=== PATIENT | female | born 1970 | race Caucasian/White ===

== ENCOUNTER → 2016-09-16 | Outpatient (CLI) | payer BC ==
[~2016-09-16] MED LIST: ACHYD1T PO; BTH25T1 PO; CALC600T; ESTR1TAB24 PO; MULT-608; [UNRECOGNIZED DRUG - CODE]
--- OUTSIDE RECORDS SUMMARY | 2016-09-16 14:25 | XMS REPORT | Continuity of Care Document ---
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 If you do not see the information that you expected, contact Release of Information in the Health Information Management department at [phone] for further assistance in locating additional records.[facility] Active Allergies and Adverse Reactions No Known Allergies Current Medications Prescription Sig. Disp. Refills Start End Date Status Date estrogens, conjugated Take 0.625 mg by mouth Active (PREMARIN) 0.625 mg Daily. tablet MULTI-VITAMIN PO Take 1 Tab by mouth Active Daily. CALCIUM 500 PO Active diphenhydrAMINE Take 25 mg by mouth As Active (BENADRYL) 25 mg capsule Needed Active Problems Not on file Social History Tobacco Use Types Packs/Day Years Used Date Never Smoker Alcohol Use Drinks/Week oz/Week Comments No Last Filed Vital Signs Vital Sign Reading Time Taken Blood Pressure 90/57 12/31/2007 12:45 PM CDT Pulse 54 12/31/2007 12:45 PM CDT Temperature 36.8 C (98.2 F) 12/31/2007 9:00 AM CDT Respiratory Rate - - Height 1.6 m (5' 3") 12/31/2007 9:00 AM CDT Weight 48.081 kg (106 lb) 12/31/2007 9:00 AM CDT Body Mass Index 18.78 12/31/2007 9:00 AM CDT Oxygen Saturation 100% 12/31/2007 12:45 PM CDT Plan of Care Health Maintenance Due Date Last Done Comments Physical (Comprehensive) 1979 Exam Pertussis Vaccine 1983 Tetanus Vaccine 1989 Cervical Cancer Screening 1993 Influenza Vaccine 04/11/2016 Results from Last 3 Months Not on file
--- NOTE | 2016-09-16 15:13 | Diagnostic Imaging Report ---
Three views of the right knee. INDICATION: Knee pain. FINDINGS: There is no fracture, dislocation or radiopaque foreign body. No suprapatellar effusion seen. IMPRESSION: Unremarkable exam. Dictated by: Dictated on workstation # [id number]
== END ==
LOC: RAD 14:21
PROVIDERS: ATTEND Nurse Practitioner Family
DX: M25.561 Pain in right knee (principal)
CPT/HCPCS: 73562

== ENCOUNTER → 2016-09-25 | Outpatient (CLI) | payer BC ==
--- OUTSIDE RECORDS SUMMARY | 2016-09-25 09:15 | XMS REPORT | Continuity of Care Document ---
Author Author [facility] Organization [facility] Address Unknown Phone Unavailable Care Team Providers Care Sat Tutor Name Role Phone Antonio Vasquez PCP [phone] Source Comments Some departments are not documenting in the electronic medical record. If you do not see the information that you expected, contact Release of Information in the Health Information Management department at [phone] for further assistance in locating additional records.[facility] Active Allergies and Adverse Reactions [...]
--- NOTE | 2016-09-25 12:14 | Diagnostic Imaging Report ---
PROCEDURE: MRI right joint lower extremity without contrast. TECHNIQUE: Multiplanar, multisequence non contrast-enhanced MRI of the right lower extremity was accomplished. INDICATION: Lateral right knee pain. FINDINGS: There is no significant effusion. There is a small popliteal cyst measuring 0.7 x 1.2 x 0.8 cm. The ACL and the PCL are normal. The medial and lateral menisci are intact. The MCL and the lateral collateral ligament complex are intact. The extensor mechanism appears intact. The cartilage in the three compartments appears preserved. The muscles signal and bulk around the knee appear unremarkable. IMPRESSION: There is a tiny Young's cyst. No significant abnormality seen otherwise. Dictated by: Dictated on workstation # [id number]
== END ==
LOC: RAD 09:12
PROVIDERS: ATTEND Nurse Practitioner Family
DX: M25.561 Pain in right knee (principal)
CPT/HCPCS: 73721

== ENCOUNTER 2016-11-13 14:15 | Outpatient (RCR) | payer BC | END 2016-12-17 13:40 | disposition home or self-care (01) | PROVIDERS: ATTEND Orthopaedic Surgery | DX: M76.31 Iliotibial band syndrome, right leg (principal) ==

== ENCOUNTER → 2017-03-21 | Outpatient (CLI) | payer BC ==
--- NOTE | 2017-03-24 19:16 | Diagnostic Imaging Report ---
EXAMINATION: Digital mammogram bilateral screening with tomosynthesis. INDICATION: Screening. COMPARISON: This study was compared to the prior exams of 03/08/2016, 02/22/2015, and 02/02/2014. At this time, there are no current complaints. The current study was also evaluated with a Computer Aided Detection (CAD) system. FINDINGS: The fibroglandular tissue in both breasts is heterogeneously dense. This does limit the sensitivity of this exam. Overall, there does not appear to have been any significant change when compared to the prior study. No primary or secondary sign of malignancy is noted. 3D tomographic images fail to show any sign of malignancy. IMPRESSION: There is no radiographic evidence for malignancy. ACR BI-RADS Category 1: Negative. Result letter will be mailed to the patient. Note: At least 10% of breast cancer is not imaged by mammography. Dictated by: Dictated on workstation # [id number]
== END ==
LOC: RAD 09:41
PROVIDERS: ATTEND Nurse Practitioner Family
DX: Z12.31 Encounter for screening mammogram for malignant neoplasm of breast (principal)
CPT/HCPCS: 77067

== ENCOUNTER → 2018-01-20 | Outpatient (CLI) | payer BC | LOC: CARD 14:11 | PROVIDERS: ATTEND Internal Medicine Cardiovascular Disease | DX: R94.31 Abnormal electrocardiogram [ECG] [EKG] (principal); Z82.49 Family history of ischemic heart disease and other diseases of the circulatory system | CPT/HCPCS: 93017 ==

== ENCOUNTER → 2018-02-10 | Outpatient (CLI) | payer BC | LOC: CARD 12:49 | PROVIDERS: ATTEND Internal Medicine Cardiovascular Disease | DX: I34.0 Nonrheumatic mitral (valve) insufficiency (principal); R94.31 Abnormal electrocardiogram [ECG] [EKG]; Z82.49 Family history of ischemic heart disease and other diseases of the circulatory system | CPT/HCPCS: 93306 ==

== ENCOUNTER 2018-06-17 06:48 | Emergency (ER) | payer OTHER, BC ==
[~2018-06-17] VITALS: Ht 160 cm; Wt 4.1 kg
[2018-06-17] MEDS ORDERED: KETOROLAC 30 MG/ML VIAL IM STA (07:06)
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
[2018-06-17 07:31] VITALS: BP 131/78
== END 2018-06-17 07:31 | disposition home or self-care (01) ==
LOC: EDUNIT# 06:48 → ER 06:49
DX: S29.012A Strain of muscle and tendon of back wall of thorax, initial encounter (principal); Z88.0 Allergy status to penicillin; Z90.710 Acquired absence of both cervix and uterus; V43.53XA Car driver injured in collision with pick-up truck in traffic accident, initial encounter
CPT/HCPCS: 96372; 99284

== ENCOUNTER → 2018-06-24 | Outpatient (CLI) | payer OTHER, BC ==
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
== END ==
LOC: RAD 09:22
PROVIDERS: ATTEND Nurse Practitioner Family
DX: M54.6 Pain in thoracic spine (principal); R07.81 Pleurodynia; V89.2XXA Person injured in unspecified motor-vehicle accident, traffic, initial encounter
CPT/HCPCS: 71110; 72070

== ENCOUNTER 2018-12-24 13:40 | Outpatient (RCR) | payer BC | END 2019-01-19 14:31 | disposition home or self-care (01) | DX: M79.662 Pain in left lower leg (principal) ==

== ENCOUNTER → 2019-02-12 | Outpatient (CLI) | payer BC ==
--- NOTE | 2019-02-13 08:02 | Diagnostic Imaging Report ---
Digital mammogram. Bilateral screening with 3-D tomosynthesis with CAD. The study was compared to prior exams of 03/21/2017, 03/08/2016 and 02/22/2015. At this time there are no current complaints. The current study was also evaluated with a Computer Aided Detection (CAD) system. FINDINGS: The fibroglandular tissue in both breasts is heterogeneously dense. This does limit the sensitivity of this exam. Overall, there does not appear to have been any significant change when compared to the prior study. No primary or secondary sign of malignancy is noted. IMPRESSION: There is no radiographic evidence for malignancy. ACR BI-RADS Category 1: Negative. Result letter will be mailed to the patient. Note: At least 10% of breast cancer is not imaged by mammography. Dictated by: Dictated on workstation # [id number]
== END ==
LOC: RAD 10:34
PROVIDERS: ATTEND Nurse Practitioner Family
DX: Z12.31 Encounter for screening mammogram for malignant neoplasm of breast (principal)
CPT/HCPCS: 77067

== ENCOUNTER 2020-02-21 14:30 | Outpatient (RCR) | payer BC | END 2020-02-21 16:35 | disposition home or self-care (01) | PROVIDERS: ATTEND Orthopaedic Surgery | DX: M16.11 Unilateral primary osteoarthritis, right hip (principal) ==

== ENCOUNTER → 2020-03-06 | Outpatient (CLI) | payer BC ==
--- NOTE | 2020-03-07 16:49 | Diagnostic Imaging Report ---
Digital mammogram, bilateral screening. This study was compared to the prior exams of 02/12/2019, 03/21/17 and 03/08/2016. There are no current complaints. The current study was also evaluated with a Computer Aided Detection (CAD) system. FINDINGS: The fibroglandular tissue in both breasts is heterogeneously dense. This does limit the sensitivity of this exam. Overall, there does not appear to have been any significant change when compared to the prior study. No primary or secondary sign of malignancy is noted. IMPRESSION: There is no radiographic evidence for malignancy. ACR category 1 ACR BI-RADS Category 1: Negative. Result letter will be mailed to the patient. Note: At least 10% of breast cancer is not imaged by mammography. Dictated by: Dictated on workstation # [id number]
== END ==
LOC: RAD 14:19
PROVIDERS: ATTEND Nurse Practitioner Family
DX: Z12.31 Encounter for screening mammogram for malignant neoplasm of breast (principal)
CPT/HCPCS: 77063; 77067

== ENCOUNTER 2020-05-31 20:38 | Emergency (ER) | payer BC ==
[~2020-05-31] VITALS: Ht 160 cm; Wt 45.3 kg
[2020-05-31] MEDS ORDERED: PANTOPRAZOLE 40 MG (PROTONIX) VIAL ONE (20:50)
[2020-05-31 20:53] LABS: BASOPHILS # (AUTO) 0.1 10^3/uL (0.0-0.1); BASOPHILS % (AUTO) 1 % (0-10); EOSINOPHILS # (AUTO) 0.1 10^3/uL (0.0-0.3); EOSINOPHILS % (AUTO) 1 % (0-10); HEMATOCRIT 43 % (35-52); HEMOGLOBIN 14.6 g/dL (11.5-16.0); LYMPHOCYTES # (AUTO) 2.2 10^3/uL (1.0-4.0); LYMPHOCYTES % (AUTO) 34 % (12-44); MEAN CORPUSCULAR HEMOGLOBIN 31 pg (25-34); MEAN CORPUSCULAR HGB CONC 34 g/dL (32-36); MEAN CORPUSCULAR VOLUME 92 fL (80-99); MEAN PLATELET VOLUME 11.1 fL (9.0-12.2); MONOCYTES # (AUTO) 0.7 10^3/uL (0.0-1.0); MONOCYTES % (AUTO) 11 % (0-12); NEUTROPHILS # (AUTO) 3.5 10^3/uL (1.8-7.8); NEUTROPHILS % (AUTO) 53 % (42-75); PLATELET COUNT 202 10^3/uL (130-400); WHITE BLOOD COUNT 6.6 10^3/uL (4.3-11.0)
[2020-05-31] MEDS ORDERED: PANTOPRAZOLE 40 MG (PROTONIX) VIAL IV ONE (21:00)
[2020-05-31 21:06] LABS: BILIRUBIN,URINE NEGATIVE (NEGATIVE); CLARITY,URINE CLEAR; COLOR,URINE YELLOW; GLUCOSE, URINE (UA) NEGATIVE (NEGATIVE); KETONES,URINE NEGATIVE (NEGATIVE); LEUKOCYTE ESTERASE ,URINE 1+ (NEGATIVE); NITRITE,URINE NEGATIVE (NEGATIVE); PROTEIN,URINE NEGATIVE (NEGATIVE)
[2020-05-31 21:12] LABS: INR 0.9 (0.8-1.4); PROTHROMBIN TIME PATIENT 12.8 SEC (12.2-14.7)
[2020-05-31 21:15] LABS: ALBUMIN 4.7 GM/DL (3.2-4.5)
[2020-05-31 21:16] LABS: CHLORIDE 100 MMOL/L (98-107); POTASSIUM 3.1 MMOL/L (3.6-5.0); SODIUM 140 MMOL/L (135-145)
[2020-05-31 21:17] LABS: AMYLASE 57 U/L (25-125); CALCIUM 9.9 MG/DL (8.5-10.1)
[2020-05-31 21:18] LABS: GLUCOSE 125 MG/DL (70-105); TOTAL PROTEIN 7.8 GM/DL (6.4-8.2)
[2020-05-31 21:19] LABS: CARBON DIOXIDE 28 MMOL/L (21-32)
[2020-05-31 21:20] LABS: BACTERIA,URINE FEW /HPF; RBC,URINE RARE /HPF; SQUAMOUS EPITHELIAL CELL,UR RARE /HPF; WBC,URINE 25-50 /HPF
[2020-05-31 21:20] LABS: BILIRUBIN,TOTAL 0.4 MG/DL (0.1-1.0)
[2020-05-31 21:21] LABS: ALKALINE PHOSPHATASE 72 U/L (40-136); CREATININE SERUM 0.93 MG/DL (0.60-1.30); GFR ESTIMATED > 60
--- NOTE | 2020-05-31 21:22 | Diagnostic Imaging Report ---
INDICATION: Right anterior chest pain Portable chest 9:12 PM Heart size and pulmonary vascularity are normal. Lungs are clear. There are no effusions or pneumothoraces. IMPRESSION: Negative chest Dictated by: Dictated on workstation # [id number]
[2020-05-31 21:23] LABS: BUN/CREATININE RATIO 23
[2020-05-31 21:24] LABS: ALANINE AMINOTRANSFERASE 22 U/L (0-55); MAGNESIUM 2.1 MG/DL (1.6-2.4)
[2020-05-31 21:25] LABS: LIPASE 45 U/L (8-78)
[2020-05-31 21:26] LABS: CREATINE KINASE 165 U/L (29-168)
--- NOTE | 2020-05-31 21:26 | ED Abdominal Pain ---
General Chief Complaint: Chest Pain Stated Complaint: UPPER ABD PAIN;MID BACK PAIN;HEARTBURN Nursing Triage Note: C/O EPIGASTRIC PAIN AND HEARTBURN WITH PAIN IN HER MID UPPER BACK. VERBALIZES THIS HASBEEN GOING ON FOR ABOUT A WEEK NOW AND SHE AHS AN APPOINTMENT TO SEE THE DOCTOR TOMORROW BUT THOUGHT SHE SHOULD GET CHECKED OUT. Sepsis Screen: No Definite Risk Source of Information: Patient History of Present Illness Date Seen by Provider: May 31, 2020 Time Seen by Provider: 20:41 Initial Comments PT ARRIVES VIA POV FROM HOME STATES THAT FOR THE LAST WEEK SHE HAS BEEN HAVING UPPER ABDOMINAL PAIN THAT RADIATES TO HER BACK PAIN IS IN EPIGASTRIC AREA, RUQ AND RIGHT CVA AREA PAIN COMES AND GOES, AND NOTHING WORSENS OR IMPROVES PAIN STATES SHE HAS HAD A LITTLE BIT OF SHORTNESS OF BREATH, BUT DOES NOT HURT TO BREATHE NO CHEST PAIN NO COUGH NO NAUSEA/VOMITING/DIARRHEA/CONSTIPATION--HAS BEEN EATING AND DRINKING NORMALLY NO FEVER NO SWEATS NO SWELLING IN FEET/ANKLES OR PAIN IN CALVES STATES SHE FREQUENTLY RUNS 5-6 MILES A DAY, BUT DID NOT RUN TODAY 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 PT HAS AN APPOINTMENT WITH DR. SHAH TOMORROW FOR THIS PROBLEM, BUT THOUGHT SHE SHOULD GO AHEAD AND GET CHECKED OUT TONIGHT TOO SYMPTOMS ARE NO DIFFERENT TONIGHT IN ANY WAY HAS NOT TAKEN ANYTHING FOR SYMPTOMS PCP; DR. SHAH ORTHOPEDIC SURGEON: DR. BALBUENA Allergies and Home Medications Allergies Coded Allergies: Penicillins (Unverified Allergy, Unknown, 05/31/20) Home Medications Estradiol 1 Mg Tablet, 1 MG PO DAILY, (Reported) Hyoscyamine Sulfate 0.125 Mg Tab.subl, 0.25 MG SL Q4H Prescribed by: CHAPO SON on 05/31/202331 Nitrofurantoin Monohyd/M-Cryst 100 Mg Capsule, 1 TAB PO BID Prescribed by: CHAPO SON on 05/31/202331 Pantoprazole Sodium 40 Mg Tablet.dr, 40 MG PO DAILY Prescribed by: CHAPO SON on 05/31/202331 Patient Home Medication List Home Medication List Reviewed: Yes Review of Systems Review of Systems Constitutional: no symptoms reported EENTM: No Symptoms Reported Respiratory: See HPI; Denies Cough; Shortness of Air Cardiovascular: No Symptoms Reported; Denies Chest Pain, Denies Edema, Denies Lightheadedness, Denies Palpitations, Denies Syncope Gastrointestinal: See HPI, Abdominal Pain; Denies Constipated, Denies Diarrhea, Denies Nausea, Denies Poor Appetite, Denies Vomiting Genitourinary: No Symptoms Reported Musculoskeletal: see HPI, other (HAS HAD PROBLEMS WITH SCIATICA OF RIGHT LEG X 7 MONTHS--IS SEEING DR. BALBUENA FOR THIS PROBLEM) Skin: no symptoms reported; No rash Psychiatric/Neurological: No Symptoms Reported; Denies Numbness, Denies Pa resthesia, Denies Tingling, Denies Weakness Endocrine: No Symptoms Reported Hematologic/Lymphatic: No Symptoms Reported Past Ilrfbbz-Uvxoay-Fykocj Hx Past Med/Social Hx: Reviewed and Corrections made Patient Social History Alcohol Use: Denies Use Recreational Drug Use: No Smoking Status: Never a Smoker Recent Foreign Travel: No Contact w/Someone Who Travel: No Recent Infectious Disease Expo: No Recent Hopitalizations: Yes ([employer]) Physical Abuse: No Sexual Abuse: No Mistreated: No Fear: No Immunizations Up To Date PED Vaccines UTD: Yes Date of Influenza Vaccine: Apr 25, 2020 Past Medical History Surgeries: Yes (CYST OF PELVIC FLOOR REMOVED;,MULTIPLE I&D'S;HYST/BSO) Appendectomy, Section, Hysterectomy, Oophorectomy Respiratory: No Cardiac: No Neurological: No : No Reproductive Disorders: No 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 oz. 4.391173fx; 17.00 BMI Method:Stated General Appearance: WD/WN, no apparent distress, thin Neck: normal inspection Respiratory: chest non-tender, normal breath sounds, no respiratory distress, no accessory muscle use Cardiovascular: normal peripheral pulses, regular rate, rhythm, no edema, no JVD, no murmur Gastrointestinal: normal bowel sounds, soft, no organomegaly, no pulsatile mass; No distended, No guarding, No rebound; tenderness (MILD EPIGASTRIC, RUQ AND RIGHT CVA TENDERNESS); No hernia, No mass Extremities: normal range of motion, non-tender, normal inspection, no pedal edema, no calf tenderness, normal capillary refill Back: no vertebral tenderness, CVA tenderness (R) Neurologic/Psychiatric: 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 II-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 nml as tested, no motor/sensory deficits, alert, normal mood/affect, oriented x 3 Skin: normal color, warm/dry; No rash Progress/Results/Core Measures Results/Orders Lab Results Laboratory Tests Test 05/31/20 20:45 05/31/20 20:56 Range/Units White Blood Count 6.6 4.3-11.0 10^3/uL Red Blood Count 4.67 3.80-5.11 10^6/uL Hemoglobin 14.6 11.5-16.0 g/dL Hematocrit 43 35-52 % Mean Corpuscular Volume 92 80-99 fL Mean Corpuscular Hemoglobin 31 25-34 pg Mean Corpuscular Hemoglobin Concent 34 32-36 g/dL Red Cell Distribution Width 12.6 10.0-14.5 % Platelet Count 202 130-400 10^3/uL Mean Platelet Volume 11.1 9.0-12.2 fL Immature Granulocyte % (Auto) 0 % Neutrophils (%) (Auto) 53 42-75 % Lymphocytes (%) (Auto) 34 12-44 % Monocytes (%) (Auto) 11 0-12 % Eosinophils (%) (Auto) 1 0-10 % Basophils (%) (Auto) 1 0-10 % Neutrophils # (Auto) 3.5 1.8-7.8 10^3/uL Lymphocytes # (Auto) 2.2 1.0-4.0 10^3/uL Monocytes # (Auto) 0.7 0.0-1.0 10^3/uL Eosinophils # (Auto) 0.1 0.0-0.3 10^3/uL Basophils # (Auto) 0.1 0.0-0.1 10^3/uL Immature Granulocyte # (Auto) 0.0 0.0-0.1 10^3/uL Prothrombin Time 12.8 12.2-14.7 SEC INR Comment 0.9 0.8-1.4 Activated Partial Thromboplast Time 28 24-35 SEC Sodium Level 140 135-145 MMOL/L Potassium Level 3.1 L 3.6-5.0 MMOL/L Chloride Level 100 98-107 MMOL/L Carbon Dioxide Level 28 21-32 MMOL/L Anion Gap 12 5-14 MMOL/L Blood Urea Nitrogen 21 H 7-18 MG/DL Creatinine 0.93 0.60-1.30 MG/DL Estimat Glomerular Filtration Rate > 60 BUN/Creatinine Ratio 23 Glucose Level 125 H 70-105 MG/DL Calcium Level 9.9 8.5-10.1 MG/DL Corrected Calcium 8.5-10.1 MG/DL Magnesium Level 2.1 1.6-2.4 MG/DL Total Bilirubin 0.4 0.1-1.0 MG/DL Aspartate Amino Transf (AST/SGOT) 23 5-34 U/L Alanine Aminotransferase (ALT/SGPT) 22 0-55 U/L Alkaline Phosphatase 72 40-136 U/L Total Creatine Kinase 165 29-168 U/L Creatine Kinase MB 2.0 <6.6 NG/ML Myoglobin 42.2 10.0-92.0 NG/ML Troponin I < 0.028 <0.028 NG/ML B-Type Natriuretic Peptide < 10.0 <100.0 PG/ML Total Protein 7.8 6.4-8.2 GM/DL Albumin 4.7 H 3.2-4.5 GM/DL Amylase Level 57 25-125 U/L Lipase 45 8-78 U/L Urine Color YELLOW Urine Clarity CLEAR Urine pH 6.0 5-9 Urine Specific [place] 1.020 1.016-1.022 Urine Protein NEGATIVE NEGATIVE Urine Glucose (UA) NEGATIVE NEGATIVE Urine Ketones NEGATIVE NEGATIVE Urine Nitrite NEGATIVE NEGATIVE Urine Bilirubin NEGATIVE NEGATIVE Urine Urobilinogen 0.2 < = 1.0 MG/DL Urine Leukocyte Esterase 1+ H NEGATIVE Urine RBC (Auto) NEGATIVE NEGATIVE Urine RBC RARE /HPF Urine WBC 25-50 H /HPF Urine Squamous Epithelial Cells RARE /HPF Urine Crystals NONE /LPF Urine Bacteria FEW H /HPF Urine Casts NONE /LPF Urine Mucus NEGATIVE /LPF Urine Culture Indicated YES My Orders Orders - CHAPO SON DO Ed Iv/Invasive Line Start (05/31/20 20:47) Ekg Tracing (05/31/20 20:47) Monitor-Rhythm Ecg Trace Only (05/31/20 20:47) Amylase (05/31/20 20:47) BNP (05/31/20 20:47) Cbc With Automated Diff (05/31/20 20:47) Comprehensive Metabolic Panel (05/31/20 20:47) Creatine Kinase (05/31/20 20:47) Creatine Kinase Mb (05/31/20 20:47) Lipase (05/31/20 20:47) Magnesium (05/31/20 20:47) Protime With Inr (05/31/20 20:47) Partial Thromboplastin Time (05/31/20 20:47) Ua Culture If Indicated (05/31/20 20:47) Myoglobin Serum (05/31/20 20:47) Troponin I (05/31/20 20:47) Pantoprazole Injection (Protonix Injecti (05/31/20 21:00) Chest 1 View, Ap/Pa Only (05/31/20 20:47) Pantoprazole Injection (Protonix Injecti (05/31/20 20:50) Urine Culture (05/31/20 20:56) Ct [place] Chest/Noang Abd-Pelv W (05/31/20 21:36) Ketorolac Injection (Toradol Injection) (05/31/20 21:45) Ceftriaxone For Iv Use (Rocephin For I (05/31/20 21:45) Iohexol Injection (Omnipaque 350 Mg/Ml 1 (05/31/20 22:15) Ns (Ivpb) (Sodium Chloride 0.9% Ivpb Bag (05/31/20 22:15) Medications Given in ED Current Medications Medications Dose Ordered Sig/Peyton Route Start Time Stop Time Status Last Admin Dose Admin Ceftriaxone Sodium 1000 mg/ Sterile Water 10 ml @ 200 mls/hr ONCE ONCE IV 05/31/20 21:45 05/31/20 21:47 DC 05/31/20 21:51 200 MLS/HR Iohexol 100 ml ONCE ONCE IV 05/31/20 22:15 05/31/20 22:16 DC 05/31/20 22:08 100 ML Ketorolac Tromethamine 30 mg ONCE ONCE IVP 05/31/20 21:45 05/31/20 21:46 DC 05/31/20 21:51 30 MG Pantoprazole 40 mg ONCE ONCE IV 05/31/20 21:00 05/31/20 21:01 DC 05/31/20 20:54 40 MG Sodium Chloride 80 ml ONCE ONCE IV 05/31/20 22:15 05/31/20 22:16 DC 05/31/20 22:08 80 ML Vital Signs/I&O 05/31/20 05/31/20 20:40 20:45 Temp 36.0 Pulse 80 Resp 18 B/P (MAP) 149/86 (107) Pulse Ox 100 O2 Delivery Room Air Blood Pressure Mean: 107 Progress Progress Note : Progress Note GIVEN PROTONIX AND ROCEPHIN SYMPTOMS IMPROVED AT DISMISSAL Initial ECG Impression Date: May 31, 2020 Initial ECG Impression Time: 20:48 Initial ECG Rate: 72 Initial ECG Rhythm: Normal Sinus Diagnostic Imaging Comments CXR--PER RADIOLOGIST REPORT AT 0403 Heart size and pulmonary vascularity are normal. Lungs are clear. There are no effusions or pneumothoraces. IMPRESSION: Negative chest CT CHEST ANGIOGRAM/ABDOMEN-PELVIS--NO ACUTE PROCESS, PER [facility] VIA FAX AT [phone] Reviewed: Reviewed by Me Departure Impression Primary Impression: EPIGASTRIC AND RUQ PAIN Additional Impression: UTI (urinary tract infection) Disposition: HOME, SELF-CARE Condition: Stable Departure-Patient Inst. Referrals: LAZARA SHAH MD (PCP/Family) Primary Care Physician Patient Instructions: Severe Abdominal Pain, Adult (DC), Urinary Tract Infection, Adult (DC) Add. Discharge Instructions: CLEAR LIQUIDS--WATER, BROTH, JELLO, GATORADE BRATS DIET--BANANAS, RICE, APPLESAUCE, TOAST, SALTINES KEEP YOUR APPOINTMENT WITH DR. SHAH TOMORROW All discharge instructions reviewed with patient and/or family. Voiced understanding. Scripts Nitrofurantoin Monohyd/M-Cryst (Macrobid 100 mg Capsule) 100 Mg Capsule 1 TAB PO BID, #20 CAP Prov: HUYCHAPO K DO 05/31/20 Hyoscyamine Sulfate (Levsin-Sl) 0.125 Mg Tab.subl 0.25 MG SL Q4H, #10 TAB Prov: HUYCHAPO K DO 05/31/20 Pantoprazole Sodium (Protonix) 40 Mg Tablet.dr 40 MG PO DAILY, #15 TAB Prov: CHAPO SON DO 05/31/20 CHAPO SON DO May 31, 2020 21:26
[2020-05-31] MEDS ORDERED: KETOROLAC 30 MG/ML VIAL IVP ONE (21:45)
[2020-05-31] MEDS ORDERED: cefTRIAXone FOR IV USE 1,000 MG in WATER (STERILE) FOR INJECTION 10 ML IV ONE (21:45)
[2020-05-31] MEDS ORDERED: NS 100 ML (IVPB) BAG IV ONE (22:15)
[2020-05-31] MEDS ORDERED: IOHEXOL 350 MG/ML 100 ML (OMNIPAQUE 350) VIAL IV ONE (22:15)
[2020-05-31] MEDS ORDERED: PANT40TA2 PO (23:32)
[2020-05-31] MEDS ORDERED: NITR-65 PO (23:32)
[2020-05-31] MEDS ORDERED: HYOS0.1283 SL (23:32)
[2020-05-31 23:44] VITALS: BP 121/70
--- NOTE | 2020-06-01 06:05 | Diagnostic Imaging Report ---
CTA chest, abdomen and pelvis Thin axial sections through the chest, abdomen and pelvis are obtained following intravenous contrast bolus. Multiplanar MIP images were reconstructed and reviewed. All CT scans use one or more of the following dose optimizing techniques: automated exposure control, MA and/or KvP adjustment based on patient size and exam type or iterative reconstruction. INDICATION: Chest pain and epigastric pain. CHEST: There are no pulmonary arterial filling defects. There is no pulmonary arterial embolus. The thoracic aorta patent and nonaneurysmal showed no mural hemorrhage, dissection or rupture. No suspicious lung mass or pulmonary consolidation. No effusion or pneumothorax. No acute chest wall pathology. Abdomen and pelvis: The abdominal aorta and its bifurcation patent. Iliac arteries patent. The SMA and DON are patent. 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 There were no findings of end organ ischemia. No bowel, biliary or urinary tract obstruction. No pericecal or right lower quadrant inflammatory changes to suggest appendicitis. The appendix itself cannot be definitively identified. There is a mildly elevated colonic fecal load. Mild constipation not excluded. No impaction or bowel obstruction. No pneumatosis or free gas. The urinary bladder nonfocal and distended. No abscess, hematoma or acute fluid collection. The unobstructed kidneys, spleen, adrenals and pancreas unremarkable. Gallbladder and bile ducts unremarkable. The liver negative. IMPRESSION: Chest: Negative for PE or acute aortic disease, unremarkable chest CT. Abdomen and pelvis: No aneurysm, dissection or acute arterial pathology. No findings of end organ ischemia. 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 Elevated colonic fecal load without impaction or obstruction. Dictated by: Dictated on workstation # [id number]
== END 2020-05-31 23:43 | disposition home or self-care (01) ==
LOC: EDUNIT# 20:38 → ER 20:40
DX: R10.13 Epigastric pain (principal); N39.0 Urinary tract infection, site not specified; K21.9 Gastro-esophageal reflux disease without esophagitis; Z88.0 Allergy status to penicillin
CPT/HCPCS: 36415; 71045; 71275; 74177; 80053; 81000; 82150; 82550; 82553; 83690; 83735; 83874; 83880; 84484; 85025; 85610; 85730; 87088; 93005; 93041

== ENCOUNTER → 2020-06-16 | Outpatient (CLI) | payer BC ==
[~2020-06-16] MED LIST changes: +CALC-654 PO; +CATHETER FLUSH 10 ML SYR IV PRN; +CRAN500T2 PO; +CYAN250T PO; +HYOS0.1283 SL; +MULT-567 PO; +NITR-65 PO; +PANT40TA2 PO
--- NOTE | 2020-06-16 12:21 | Diagnostic Imaging Report ---
INDICATION: Right upper quadrant pain. TECHNIQUE: Patient was administered 5.4 mCi technetium 99m Choletec intravenously and imaging over the abdomen was performed. After 60 minutes, patient ingested one can of Ensure and gallbladder ejection fraction was calculated. FINDINGS: Homogeneous uptake of activity by the liver is noted. There is prompt excretion of activity into the common duct and gallbladder. There is normal passage of activity into the small bowel. Gallbladder ejection fraction is abnormally low at 16%. Normal values are 35% or greater. IMPRESSION: 1. Patent cystic duct and common bile duct. 2. Low gallbladder ejection fraction of 16%. Dictated by: Dictated on workstation # [id number]
== END ==
LOC: CARD 09:45
PROVIDERS: ATTEND Nurse Practitioner Family
DX: K83.5 Biliary cyst (principal)
CPT/HCPCS: 78227; A9537

== ENCOUNTER 2020-06-30 05:45 | Outpatient (RCR) | payer BC ==
[~2020-06-30] VITALS: Ht 160 cm; Wt 45.9 kg
[~2020-06-30 05:45] MED LIST changes: -CATHETER FLUSH 10 ML SYR IV PRN
== END 2020-06-30 09:36 | disposition home or self-care (01) ==
LOC: PREOP 05:45
PROVIDERS: ATTEND Surgery
DX: Z01.818 Encounter for other preprocedural examination (principal); K82.8 Other specified diseases of gallbladder; Z20.828 Contact with and (suspected) exposure to other viral communicable diseases
CPT/HCPCS: 87635

== ENCOUNTER 2020-07-04 09:52 | Day surgery (SDC) | payer BC ==
[2020-07-04] VITALS (12 sets, daily range): BP systolic 99–132; BP diastolic 53–66
[~2020-07-04] VITALS: Ht 160 cm; Wt 45.9 kg
--- NOTE | 2020-07-04 10:02 | Progress Note-Pre Operative ---
Pre-Operative Progress Note H&P Reviewed The H&P was reviewed, patient examined and no changes noted. Date Seen by Provider: Jul 04, 2020 Time Seen by Provider: 10:00 Date H&P Reviewed: Jul 04, 2020 Time H&P Reviewed: 09:50 Pre-Operative Diagnosis: Biliary dyskinesia PAO CARRINGTON APRN Jul 04, 2020 10:02
[2020-07-04] MEDS ORDERED: HYDR-4227 PO (10:05)
--- NOTE | 2020-07-04 10:05 | Discharge Inst-Surgical ---
D/C Lap Instructions-KIDO Reconcile Patient Problems Problems Reviewed?: Yes New, Converted, or Re-Newed RX: RX on Chart Follow Up Appt in 2 weeks Activity as tolerated No driving for 24 hours No driving while on pain medications Incentive Spirometry use every 2 hours while awake Regular Diet Symptoms to Report: Fever over 101 degree F, Nausea/Vomiting Infection Signs and Symptoms to report: Increased redness, Foul odor of wound, Increased drainage Bathing instructions: May shower Operative Area Clean/Dry; Keep incision clean/dry If any problems/questions: Contact your physician or go to Emergency Room PAO CARRINGTON APRN Jul 04, 2020 10:05
[2020-07-04] MEDS ORDERED: ONDANSETRON 4 MG/2 ML (SDV) Z0FRAN IVP PRN ×2 (10:15→13:30)
[2020-07-04] MEDS ORDERED: morphine INJ 10 MG/ML 1ML (SYR OR VIAL) IVP PRN (10:15)
[2020-07-04] MEDS ORDERED: ACETAMINOPHEN 325 MG TABLET PO PRN (10:15)
[2020-07-04] MEDS ORDERED: HYDROcodone/APAP 5 MG/325 MG (LORTAB) TAB PO ONE (10:15)
[2020-07-04] MEDS ORDERED: CLINDAMYCIN 600 MG/50 ML IVPB 50 ML IV ONE (10:30)
[2020-07-04] MEDS: LACTATED RINGERS 1,000 ML IV PRN ×2 (10:32→15:33)
[2020-07-04] MEDS ORDERED: SCOPOLAMINE 1.5 MG (TRANSDERM-SCOP) PATCH TOP ONE (10:45)
[2020-07-04] MEDS ORDERED: FAMOTIDINE 20MG/2ML IV (PEPCID) IV ONE (10:45)
[2020-07-04] MEDS ORDERED: ONDANSETRON 4 MG/2 ML (SDV) Z0FRAN IV ONE (10:45)
[2020-07-04] MEDS ORDERED: LIDOCAINE/EPI 1%-1:100,000 (XYLOCAINE) 20ML ONE (11:09)
[2020-07-04] MEDS ORDERED: MIDAZOLAM 2 MG/2 ML (VERSED) VIAL ONE (12:15)
[2020-07-04] MEDS ORDERED: fentaNYL INJECTION 100 MCG/2 ML AMP ONE (12:15)
[2020-07-04] MEDS ORDERED: SEVOFLURANE (ULTANE) 15 ML INHAL SOLN ONE ×3 (12:21→13:15)
[2020-07-04] MEDS ORDERED: proPOfol 200 MG/20 ML (DIPRIVAN) VIAL IV ONE (12:21)
[2020-07-04] MEDS ORDERED: ONDANSETRON 4 MG/2 ML (SDV) Z0FRAN ONE (12:21)
[2020-07-04] MEDS ORDERED: LIDOCAINE PF 2% 5 ML (XYLOCAINE) VIAL ONE (12:21)
[2020-07-04] MEDS ORDERED: ROCURONIUM 10 MG/ML 5 ML SYRINGE IV ONE (12:56)
--- NOTE | 2020-07-04 13:08 | Progress Note-Post Operative ---
Post-Operative Progess Note Surgeon (s)/Sample Sewer (s) Surgeon CHEMA OLIVEROS MD Sample Sewer: esperanza sky OFFICE COMMUNICATION PROFESSOR Pre-Operative Diagnosis Biliary dyskinesia Post-Operative Diagnosis same Procedure & Operative Findings Date of Procedure 07/04/20 Procedure Performed/Findings laparoscopic cholecystectomy Anesthesia Type get Estimated Blood Loss Estimated blood loss (mL): minimal Specimens/Packing Specimens Removed gallbladder CHEMA OLIVEROS MD Jul 04, 2020 13:08
[2020-07-04] MEDS ORDERED: morphine INJ 10 MG/ML 1ML (SYR OR VIAL) IVP ONE (13:30)
[2020-07-04] MEDS ORDERED: PROMETHAZINE INJ 25 MG/ML (PHENERGAN) AMP ONE (13:38)
[2020-07-04] MEDS ORDERED: PROMETHAZINE INJ 25 MG/ML (PHENERGAN) AMP IVP ONE (13:45)
--- NOTE | 2020-07-04 14:51 | Anesthesia-General Post-Op ---
General Patient Condition Mental Status/LOC: Same as Preop Cardiovascular: Satisfactory Nausea/Vomiting: Absent Respiratory: Satisfactory Pain: Controlled Complications: Absent Post Op Complications Complications None Follow Up Care/Instructions Patient Instructions None needed. Anesthesia/Patient Condition Patient Condition Patient is doing well, no complaints, stable vital signs, no apparent adverse anesthesia problems. No complications reported per nursing. ANT JOHNSON CRNA Jul 04, 2020 14:51
[2020-07-04] MEDS ORDERED: HYDROcodone/APAP 5 MG/325 MG (LORTAB) TAB ONE (15:08)
--- NOTE | 2020-07-04 16:15 | NUR ---
AWAKE AND ALERT NOW, RATES SURGICAL SITE PAIN 1. INSTRUCTED ON INCENTIVE SPIROMETRY WITH RETURN DEMONSTRATION. UP WITH ASSIST, GAIT STEADY. REQUESTING DISMISSAL.
--- NOTE | 2020-07-04 17:33 | OPERATIVE REPORT ---
DATE OF SERVICE: 07/04/2020 ATTENDING PRIMARY CARE PHYSICIAN: Dr. Kimmy Roche. PREOPERATIVE DIAGNOSIS: Symptomatic biliary dyskinesia. POSTOPERATIVE DIAGNOSIS: Symptomatic biliary dyskinesia. PROCEDURE PERFORMED: Laparoscopic cholecystectomy. SURGEON: Chema Oliveros MD. PITCH WORKER: Yury Clifton APRN. ANESTHESIA: General endotracheal. ESTIMATED BLOOD LOSS: Minimal. FINDINGS: Mild omental adhesions towards the fundus of the gallbladder. DISPOSITION: The patient tolerated the procedure well. INDICATIONS: The patient is a 49-year-old female, who has had pain in the right upper abdominal quadrant with radiation towards the back, usually following meals. She reports that this was initially mild; however, in the past few months, has become much more frequent and more prolonged. She underwent an ultrasound initially, which did not show any gallstones. She then underwent a HIDA scan, which did show a severely low ejection fraction of 12% as well as reproduction of symptoms upon administration of a Kinevac analogue consistent with a biliary dyskinesia. DESCRIPTION OF PROCEDURE: The patient was brought to the operating room and laid supine on the table. After adequate IV pain and sedative medications and general endotracheal intubation, the abdomen was prepped and draped in a standard surgical fashion. A 0.5% Marcaine with epinephrine was used to anesthetize the overlying skin in the left upper abdominal quadrant and a transverse skin incision was made using 15 blade. An 0 silk suture was applied to the medial aspect of the incision for retraction and a Veress needle inserted with a low opening pressure of 0 mmHg. The abdomen was then insufflated to 15 mmHg pressure. The Veress needle was removed and a 5 mm XL trocar was placed followed by a 5 mm 45-degree angle laparoscope visualizing the peritoneal cavity. A four-quadrant abdominal exploration was performed. There was a slightly distended gallbladder with mild omental adhesions towards the fundus of the gallbladder. There was mild hepatomegaly as well. Under direct visualization, we then proceeded to place a supraumbilical 10 mm port after the skin and peritoneal lining were anesthetized using 0.5% Marcaine with epinephrine and a transverse skin incision was made using 15 blade. In a similar manner, a right upper abdominal quadrant 5 mm port was placed. The patient was then placed in a reverse Trendelenburg position as well as plane right side up, left side down. The fundus of the gallbladder was then retracted anteriorly and superiorly. The hepatoduodenal ligament was then taken down using blunt dissection as well as electrocautery on hook instrument. The entire critical view of safety was identified including the triangle of Calot as well as the cystic duct and artery as the only two structures going into the gallbladder as well as the cystic plate behind the proximal gallbladder. A timeout was then taken and the cystic duct and artery were then clipped proximally, distally and cut with EndoShears. The gallbladder was then dissected off the liver bed using cautery on a hook instrument with visualization of good hemostasis as well as no leaking ducts of Luschka. The gallbladder was removed through the 10 mm port site using an EndoCatch bag. The 10 mm port site fascia and peritoneum were then closed under direct visualization using a Alex-Dariel device and 0 Vicryl suture. The abdomen was desufflated and remaining ports removed. All skin incisions were closed using 4-0 Monocryl running subcuticular sutures. The wounds were then cleaned and covered with Dermabond. The patient tolerated the procedure well. We will start IV normal pain medication as well as a clear liquid diet. When she is tolerating clears, has good pain control with oral pain medications and ambulating well, we will discharge her home. Job ID: [id number] DocumentID: [id number] Dictated Date: 07/04/2020 13:12:46 [employer] Developer Date: 07/04/2020 17:32:33 Dictated By: CHEMA OLIVEROS MD
== END 2020-07-04 16:15 | disposition home or self-care (01) ==
LOC: SDC 09:52
PROVIDERS: ATTEND Surgery
DX: K81.1 Chronic cholecystitis (principal); K82.8 Other specified diseases of gallbladder; K21.9 Gastro-esophageal reflux disease without esophagitis; Z79.899 Other long term (current) drug therapy; Z88.0 Allergy status to penicillin; Z80.41 Family history of malignant neoplasm of ovary; Z80.49 Family history of malignant neoplasm of other genital organs; Z83.3 Family history of diabetes mellitus
CPT/HCPCS: 87081; 88304

== ENCOUNTER → 2021-01-24 | Outpatient (CLI) | payer BC ==
[~2021-01-24] MED LIST changes: -CRAN500T2 PO; +CRAN500T3 PO; -CYAN250T PO; +CYAN250T3 PO; +HYDR-4227 PO
--- NOTE | 2021-01-24 16:46 | Diagnostic Imaging Report ---
INDICATION: Right flank pain. EXAMINATION: KUB at 4:38 PM. FINDINGS: Gallbladder appears to be surgically absent. There are some surgical clips in the right saddle or pelvis. Bowel gas pattern is normal. There is no pathologic mass or calcification. IMPRESSION: No acute abnormality seen in the abdomen. Dictated by: Dictated on workstation # [id number]
== END ==
LOC: RAD 16:11
PROVIDERS: ATTEND Nurse Practitioner Family
DX: R10.11 Right upper quadrant pain (principal)
CPT/HCPCS: 74018

== ENCOUNTER → 2021-03-12 | Outpatient (CLI) | payer BC ==
--- NOTE | 2021-03-13 13:44 | Diagnostic Imaging Report ---
INDICATION: Routine screening. COMPARISON: 03/06/2020 and 02/12/2019. TECHNIQUE: 2D and 3D bilateral screening mammography was performed with CAD. FINDINGS: Scattered fibroglandular densities are identified bilaterally. The parenchymal pattern is stable. No mass or malignant-appearing microcalcifications are seen. The axillae are unremarkable. IMPRESSION: No mammographic features suspicious for malignancy are identified. ACR BI-RADS Category 1: Negative. Result letter will be mailed to the patient. Note: At least 10% of breast cancer is not imaged by mammography. Dictated by: Dictated on workstation # [id number]
== END ==
LOC: RAD 14:30
PROVIDERS: ATTEND Nurse Practitioner Family
DX: Z12.31 Encounter for screening mammogram for malignant neoplasm of breast (principal)
CPT/HCPCS: 77063; 77067

== ENCOUNTER → 2021-03-12 | Outpatient (CLI) | payer BC | LOC: CARD 12:52 | PROVIDERS: ATTEND Internal Medicine Cardiovascular Disease | DX: R07.89 Other chest pain (principal) | CPT/HCPCS: 93306 ==

== ENCOUNTER → 2021-03-13 | Outpatient (CLI) | payer BC | LOC: CARD 14:00 | PROVIDERS: ATTEND Internal Medicine Cardiovascular Disease | DX: R07.89 Other chest pain (principal) | CPT/HCPCS: 93351 ==

== ENCOUNTER 2021-07-20 16:08 | Emergency (ER) | payer BC ==
[~2021-07-20] VITALS: Ht 160 cm; Wt 45.4 kg
--- NOTE | 2021-07-20 16:52 | ED General ---
General Chief Complaint: Neurological Problems Stated Complaint: BACK PAIN/PAIN BACK OF HEAD/EXTREMITIES TINGLING Nursing Triage Note: PT AMBULATE TO ROOM 05 WITH C/O BACK PAIN THAT CHANGES LOCATION OF PAIN, LEFT HAND AND FOOT TINGLING, AND HEARTBURN X3 WEEKS. PT REPORTS SYMPTOMS STARTED X5 DAYS AFTER SHE RECEIVED HER COVID BOOSTER AND RAN A MARATHON. (CHRISTINA ORLANDO MED STUDENT) History of Present Illness Initial Comments This is an otherwise healthy 50 YO female presenting to the ED with intermittent numbness and tingling for the past 3 weeks. She states her symptoms began after running a full marathon 3 weeks ago and had her COVID booster on the same day. She has been having numbness and tingling that alternates between her toes, fingers, back, left shoulder, and right abdomen. Also notes some posterior head pain starting yesterday. Was adjusted by a chiropractor a couple of days ago and had her neck popped. Was also seen by an orthopedist, who prescribed her Prednisone, which she began taking yesterday. Denies CP, SOB, weakness, difficulty speaking, or gait disturbances, but notes some dizziness. Pt's father and twin both from heart problems, so pt had an echo and stress test with Dr. Xie a couple of months ago, which all came back normal. (CHRISTINA ORLANDO MED STUDENT) Date Seen by Provider: Jul 20, 2021 Time Seen by Provider: 17:00 (SHEA RAMIREZ) Allergies and Home Medications Allergies Coded Allergies: Penicillins (Unverified Allergy, Unknown, 05/31/20) Patient Home Medication List Home Medication List Reviewed: Yes (SHEA RAMIREZ) Calcium Carbonate/Vitamin D3 (Calcium 500 + D Tablet) 1 Each Tablet, 1 EACH PO DAILY, (Reported) Entered as Reported by: KISHOR SHEN on 06/29/20 1358 Cranberry Extract (Cranberry) 500 Mg Tablet, 500 MG PO DAILY, (Reported) Entered as Reported by: KISHOR SHEN on 06/29/20 1358 Cyanocobalamin (Vitamin B-12) (Vitamin B-12) 250 Mcg Tablet, 250 MCG PO DAILY, (Reported) Entered as Reported by: KISHOR SHEN on 06/29/20 1358 Hydrocodone/Acetaminophen ([place] 7.5-325 Tablet) 1 Each Tablet, 1-2 TAB PO Q4H Prescribed by: PAO CARRINGTON on 07/04/20 1005 Multivitamin (Multivitamins) 1 Each Tablet, 1 EACH PO DAILY, (Reported) Entered as Reported by: KISHOR SHEN on 06/29/20 3648 Review of Systems Review of Systems Constitutional: No chills, No fever EENTM: No blurred vision, No double vision Respiratory: No cough, No short of breath Cardiovascular: No chest pain, No palpitations Gastrointestinal: No abdominal pain, No nausea, No vomiting Genitourinary: no symptoms reported Musculoskeletal: see HPI; No neck pain Skin: no symptoms reported Psychiatric/Neurological: See HPI, Numbness, Tingling; Denies Weakness Hematologic/Lymphatic: No Symptoms Reported Immunological/Allergic: no symptoms reported (CHRISTINA ORLANDO STUDENT) All Other Systems Reviewed Negative Unless Noted: Yes (Negative excepted noted.) (CHRISTINA ORLANDO) Negative Unless Noted: Yes (Negative excepted noted.) (SHEA RAMIREZ) Past Atdamwe-Yljafr-Bcpbkr Hx Patient Social History Tobacco Use?: No Smoking Status: Never a Smoker Smokeless Tobacco Frequency: Never a User Use of E-Cig and/or Vaping dev: No Use of E-Cig and/or Vaping Jayden: Never a User Substance use?: No Alcohol Use?: No Pt feels they are or have been: No (CHRISTINA ORLANDO STUDENT) Immunizations Up To Date PED Vaccines UTD: Yes First/Initial COVID19 Vaccinat: 09/2020 Second COVID19 Vaccination Carrillo: 11/2020 COVID19 Vaccine Paper Final Inspector: MICHELINE (CHRISTINA ORLANDO) Seasonal Allergies Seasonal Allergies: No (CHRISTINA ORLANDO) Past Medical History Surgeries: Yes (CYST OF PELVIC FLOOR REMOVED;,MULTIPLE I&D'S;HYST/BSO, c/s x2) Appendectomy, Section, Hysterectomy, Oophorectomy Respiratory: No Currently Using CPAP: No Currently Using BIPAP: No Cardiac: No Neurological: No Reproductive Disorders: No OPHTHALMIC TECH History: Hysterectomy, Menopausal Genitourinary: No Gastrointestinal: Yes Gastroesophageal Reflux, Gall Bladder Disease Musculoskeletal: No Endocrine: No HEENT: No Hearing Impairment: Denies Cancer: No Psychosocial: No Integumentary: No Blood Disorders: No (CHRISTINA ORLANDO STUDENT) Physical Exam Vital Signs Vital Signs - First Documented 07/20/21 07/20/21 16:21 20:30 Temp 36.2 Pulse 61 Resp 16 B/P (MAP) 133/76 (95) Pulse Ox 97 O2 Delivery Room Air (SHEA RAMIREZ) Vital Signs Capillary Refill : Less Than 3 Seconds (CHRISTINA ORLANDO STUDENT) Height, Weight, BMI Height: 5'3.00" Weight: 9lbs. oz. 4.355410xa; 17.00 BMI Method:Stated General Appearance: No Apparent Distress, WD/WN Eyes: Bilateral Eye Normal Inspection, Bilateral Eye PERRL, Bilateral Eye EOMI HEENT: PERRL/EOMI; No Photophobia, No Scleral Icterus (L), No Scleral Icterus (R) Neck: Normal Inspection, Non Tender, Supple; No Tender Lateral, No Tender Midline Respiratory: Lungs Clear, Normal Breath Sounds, No Accessory Muscle Use, No Respiratory Distress Cardiovascular: Regular Rate, Rhythm, No Edema, No Murmur, Normal Peripheral Pulses Gastrointestinal: Non Tender, Soft; No Distended Back: No CVA Tenderness, No Vertebral Tenderness Extremity: Normal Inspection, Normal Range of Motion, No Pedal Edema Neurologic/Psychiatric: Alert, Oriented x3, No Motor/Sensory Deficits, Normal Mood/Affect, on line csr II-XII Norm as Tested Skin: Normal Color, Warm/Dry (CHRISTINA ORLANDO STUDENT) Neurologic/Psychiatric: No Motor/Sensory Deficits (SHEA RAMIREZ) Progress/Results/Core Measures Suspected Sepsis SIRS Temperature: Pulse: 61 Respiratory Rate: 16 Blood Pressure 133 /76 Mean: 95 (CHRISTINA ORLANDO STUDENT) Results/Orders Lab Results Laboratory Tests Test 07/20/21 17:45 Range/Units White Blood Count 7.9 4.3-11.0 10^3/uL Red Blood Count 4.67 3.80-5.11 10^6/uL Hemoglobin 14.6 11.5-16.0 g/dL Hematocrit 43 35-52 % Mean Corpuscular Volume 93 80-99 fL Mean Corpuscular Hemoglobin 31 25-34 pg Mean Corpuscular Hemoglobin Concent 34 32-36 g/dL Red Cell Distribution Width 12.2 10.0-14.5 % Platelet Count 159 130-400 10^3/uL Mean Platelet Volume 11.4 9.0-12.2 fL Immature Granulocyte % (Auto) 0 % Neutrophils (%) (Auto) 76 H 42-75 % Lymphocytes (%) (Auto) 18 12-44 % Monocytes (%) (Auto) 6 0-12 % Eosinophils (%) (Auto) 0 0-10 % Basophils (%) (Auto) 0 0-10 % Neutrophils # (Auto) 5.9 1.8-7.8 10^3/uL Lymphocytes # (Auto) 1.4 1.0-4.0 10^3/uL Monocytes # (Auto) 0.5 0.0-1.0 10^3/uL Eosinophils # (Auto) 0.0 0.0-0.3 10^3/uL Basophils # (Auto) 0.0 0.0-0.1 10^3/uL Immature Granulocyte # (Auto) 0.0 0.0-0.1 10^3/uL Urine Color YELLOW Urine Clarity CLEAR Urine pH 7.0 5-9 Urine Specific [place] 1.015 L 1.016-1.022 Urine Protein NEGATIVE NEGATIVE Urine Glucose (UA) NEGATIVE NEGATIVE Urine Ketones NEGATIVE NEGATIVE Urine Nitrite NEGATIVE NEGATIVE Urine Bilirubin NEGATIVE NEGATIVE Urine Urobilinogen 0.2 < = 1.0 MG/DL Urine Leukocyte Esterase TRACE H NEGATIVE Urine RBC (Auto) NEGATIVE NEGATIVE Urine RBC NONE /HPF Urine WBC 2-5 /HPF Urine Squamous Epithelial Cells 5-10 /HPF Urine Crystals NONE /LPF Urine Bacteria TRACE /HPF Urine Casts NONE /LPF Urine Mucus NEGATIVE /LPF Urine Culture Indicated NO Sodium Level 141 135-145 MMOL/L Potassium Level 3.6 3.6-5.0 MMOL/L Chloride Level 103 98-107 MMOL/L Carbon Dioxide Level 25 21-32 MMOL/L Anion Gap 13 5-14 MMOL/L Blood Urea Nitrogen 13 7-18 MG/DL Creatinine 0.77 0.60-1.30 MG/DL Estimat Glomerular Filtration Rate 80 BUN/Creatinine Ratio 17 Glucose Level 104 70-105 MG/DL Calcium Level 9.6 8.5-10.1 MG/DL Corrected Calcium 8.5-10.1 MG/DL Total Bilirubin 0.4 0.1-1.0 MG/DL Aspartate Amino Transf (AST/SGOT) 25 5-34 U/L Alanine Aminotransferase (ALT/SGPT) 23 0-55 U/L Alkaline Phosphatase 64 40-136 U/L Total Creatine Kinase 182 H 29-168 U/L C-Reactive Protein High Sensitivity 0.01 0.00-0.50 MG/DL Total Protein 7.9 6.4-8.2 GM/DL Albumin 4.7 H 3.2-4.5 GM/DL (SHEA RAMIREZ) My Orders Orders - SHEA RAMIREZ Iohexol Injection (Omnipaque 350 Mg/Ml 1 (07/20/21 18:45) Received Contrast (Hold Metformin- Contr (07/20/21 18:45) Ns (Ivpb) (Sodium Chloride 0.9% Ivpb Bag (07/20/21 18:45) (SHEA RAMIREZ) Medications Given in ED Current Medications Medications Dose Ordered Sig/Peyton Route Start Time Stop Time Status Last Admin Dose Admin Iohexol 100 ml ONCE ONCE IV 07/20/21 18:45 07/20/21 18:46 DC 07/20/21 19:12 75 ML Sodium Chloride 100 ml ONCE ONCE IV 07/20/21 18:45 07/20/21 18:46 DC 07/20/21 19:12 80 ML (SHEA RAMIREZ) Vital Signs/I&O 07/20/21 07/20/21 16:21 20:30 Temp 36.2 36.3 Pulse 61 63 Resp 16 16 B/P (MAP) 133/76 (95) 109/68 Pulse Ox 97 O2 Delivery Room Air Room Air (SHEA RAMIREZ) Vital Signs/I&O Capillary Refill : Less Than 3 Seconds (CHRISTINA ORLANDO MED STUDENT) Blood Pressure Mean: 95 Progress Note : Progress Note I attest that I saw this patient alongside the medical student and agree with his documented history, physical exam and review of systems except as otherwise noted. Dr. Hyman discussed the case with Dr. Roche and that he and the patient agreed to do an ED CT angiogram of the head and neck after chiropractor neck manipulation. She has been on steroids for 1 day. If the CTA is normal we would suggest NSAIDs, steroids and follow-up next week with PCP if symptoms are not improving. (SHEA RAMIREZ) Diagnostic Imaging Diagonstic Imaging: CT (a) Plain Films/CT/US/NM/MRI: c-spine, head Comments [facility] [place], [place] NAME: NADIR CONTRERAS [facility] REC#: [id number] PT STATUS: REG ER : 1970 PHYSICIAN: BELINDA HYMAN MD ADMIT DATE: 07/20/21/ER Draft Date of Exam:07/20/21 CT ANGIO HEAD/NECK INDICATION: Paresthesias in upper extremity and lower extremity on the right side with tingling. TECHNIQUE: Contiguous noncontrast images were obtained from the skull base through the vertex. After intravenous contrast administration, helical CT angiography of the neck was performed. Source data was reformatted into 3D MIP projections. Delayed post contrast acquisition was also obtained. Auto Exposure Controls were utilized during the CT exam to meet ALARA standards for radiation dose reduction. COMPARISON: There is no prior CTA for comparison. Precontrast brain CT demonstrates no extra-axial fluid question. No intracranial hemorrhage. No intracranial mass or mass effect. No midline shift. The ventricles are normal in size and position. There were no focal parenchymal abnormalities in the brain. Calvarial windows are unremarkable. CTA NECK FINDINGS: The great vessels are patent and without stenosis. The common carotid arteries, carotid bifurcations, internal carotid arteries and external carotids are patent and without stenosis or dissection. The vertebral arteries and both sides appear patent with the left being slightly dominant. There is no vertebral stenosis or occlusion. CTA HEAD FINDINGS: The distal vertebral arteries and basilar artery and posterior cerebral arteries are patent. There are well-developed posterior communicating arteries on both sides with origin of left posterior cerebral artery. The distal internal carotid arteries, anterior cerebral arteries and middle cerebral arteries and their branches appear unremarkable. There is no major vessel stenosis or occlusion or aneurysmal disease. The dural venous sinuses are patent. Delayed images demonstrate no enhancing intracranial lesions. IMPRESSION: Negative CTA neck, including negative noncontrast images of the head. Dictated on workstation # [id number] Dict: 07/20/211921 Trans: 07/20/211956 PJE [id number] Interpreted by: MICHAEL SÁNCHEZ MD Electronically signed by: Reviewed: Reviewed by Me (SHEA RAMIREZ) Departure Impression Primary Impression: Arm paresthesia, left Additional Impression: Left leg paresthesias Disposition: 01 HOME, SELF-CARE Condition: Stable Departure-Patient Inst. Decision time for Depature: 20:23 (SHEA RAMIREZ) Referrals: LAZARA ROCHE MD (PCP/Family) Primary Care Physician Patient Instructions: Paresthesia (DC) Add. Discharge Instructions: If your headache and paresthesias are persisting despite Tylenol, Motrin and prednisone by next week then I would suggest you follow-up with your primary care physician for further management. If your symptoms significantly progress or get worse or you have difficulty controlling your bowels or bladder, weakness resulting in falls or other worrisome symptoms then I would encourage you to return to the nearest ER promptly. All discharge instructions reviewed with patient and/or family. Voiced understanding. Verification and Attestation of Medical Student E/M Service A medical student performed and documented this service in my presence. I reviewed and verified all information documented by the medical student and made modifications to such information, when appropriate. I personally performed the physical exam and medical decision making. Belinda Hyman, Jul 21, 2021,12:06 (BELINDA HYMAN MD) Copy Copies To 1: LAZARA ROCHE MD, CHRISTINE MED STUDENT Jul 20, 2021 16:52 SHEA RAMIREZ Jul 20, 2021 18:39 BELINDA HYMAN MD Jul 20, 2021 18:33
[2021-07-20 17:52] LABS: BILIRUBIN,URINE NEGATIVE (NEGATIVE); CLARITY,URINE CLEAR; COLOR,URINE YELLOW; GLUCOSE, URINE (UA) NEGATIVE (NEGATIVE); KETONES,URINE NEGATIVE (NEGATIVE); LEUKOCYTE ESTERASE ,URINE TRACE (NEGATIVE); NITRITE,URINE NEGATIVE (NEGATIVE); PROTEIN,URINE NEGATIVE (NEGATIVE)
[2021-07-20 17:56] LABS: BASOPHILS % (AUTO) 0 % (0-10); EOSINOPHILS % (AUTO) 0 % (0-10); HEMATOCRIT 43 % (35-52); HEMOGLOBIN 14.6 g/dL (11.5-16.0); LYMPHOCYTES # (AUTO) 1.4 10^3/uL (1.0-4.0); LYMPHOCYTES % (AUTO) 18 % (12-44); MEAN CORPUSCULAR HEMOGLOBIN 31 pg (25-34); MEAN CORPUSCULAR HGB CONC 34 g/dL (32-36); MEAN CORPUSCULAR VOLUME 93 fL (80-99); MEAN PLATELET VOLUME 11.4 fL (9.0-12.2); MONOCYTES # (AUTO) 0.5 10^3/uL (0.0-1.0); MONOCYTES % (AUTO) 6 % (0-12); NEUTROPHILS # (AUTO) 5.9 10^3/uL (1.8-7.8); NEUTROPHILS % (AUTO) 76 % (42-75); PLATELET COUNT 159 10^3/uL (130-400); WHITE BLOOD COUNT 7.9 10^3/uL (4.3-11.0)
[2021-07-20 18:00] LABS: BACTERIA,URINE TRACE /HPF
[2021-07-20 18:09] LABS: ALBUMIN 4.7 GM/DL (3.2-4.5); CHLORIDE 103 MMOL/L (98-107); POTASSIUM 3.6 MMOL/L (3.6-5.0); SODIUM 141 MMOL/L (135-145)
[2021-07-20 18:10] LABS: CALCIUM 9.6 MG/DL (8.5-10.1)
[2021-07-20 18:11] LABS: GLUCOSE 104 MG/DL (70-105)
[2021-07-20 18:12] LABS: TOTAL PROTEIN 7.9 GM/DL (6.4-8.2)
[2021-07-20 18:13] LABS: BILIRUBIN,TOTAL 0.4 MG/DL (0.1-1.0); CARBON DIOXIDE 25 MMOL/L (21-32)
[2021-07-20 18:15] LABS: ALKALINE PHOSPHATASE 64 U/L (40-136); CREATININE SERUM 0.77 MG/DL (0.60-1.30); GFR ESTIMATED 80
[2021-07-20 18:16] LABS: BUN/CREATININE RATIO 17
[2021-07-20 18:18] LABS: ALANINE AMINOTRANSFERASE 23 U/L (0-55); CREATINE KINASE 182 U/L (29-168)
[2021-07-20] MEDS ORDERED: NS 100 ML (IVPB) BAG IV ONE (18:45)
[2021-07-20] MEDS ORDERED: IOHEXOL 350 MG/ML 100 ML (OMNIPAQUE 350) VIAL IV ONE (18:45)
[2021-07-20] MEDS ORDERED: HOLD METFORMIN - RECEIVED CONTRAST 20 ML VIAL IV SCH (18:45)
--- NOTE | 2021-07-20 19:58 | Diagnostic Imaging Report ---
INDICATION: Paresthesias in upper extremity and lower extremity on the right side with tingling. TECHNIQUE: Contiguous noncontrast images were obtained from the skull base through the vertex. After intravenous contrast administration, helical CT angiography of the neck was performed. Source data was reformatted into 3D MIP projections. Delayed post contrast acquisition was also obtained. Auto Exposure Controls were utilized during the CT exam to meet ALARA standards for radiation dose reduction. COMPARISON: There is no prior CTA for comparison. Precontrast brain CT demonstrates no extra-axial fluid question. No intracranial hemorrhage. No intracranial mass or mass effect. No midline shift. The ventricles are normal in size and position. There were no focal parenchymal abnormalities in the brain. Calvarial windows are unremarkable. CTA NECK FINDINGS: The great vessels are patent and without stenosis. The common carotid arteries, carotid bifurcations, internal carotid arteries and external carotids are patent and without stenosis or dissection. The vertebral arteries and both sides appear patent with the left being slightly dominant. There is no vertebral stenosis or occlusion. CTA HEAD FINDINGS: The distal vertebral arteries and basilar artery and posterior cerebral arteries are patent. There are well-developed posterior communicating arteries on both sides with origin of left posterior cerebral artery. The distal internal carotid arteries, anterior cerebral arteries and middle cerebral arteries and their branches appear unremarkable. There is no major vessel stenosis or occlusion or aneurysmal disease. The dural venous sinuses are patent. Delayed images demonstrate no enhancing intracranial lesions. IMPRESSION: Negative CTA neck, including negative noncontrast images of the head. Dictated by: Dictated on workstation # [id number]
[2021-07-20 20:30] VITALS: BP 109/68
== END 2021-07-20 20:33 | disposition home or self-care (01) ==
LOC: EDUNIT# 16:08 → ER 16:09
DX: R20.2 Paresthesia of skin (principal)
CPT/HCPCS: 36415; 70496; 70498; 80053; 81000; 82550; 85025; 86141

== ENCOUNTER → 2021-10-09 | Outpatient (CLI) | payer BC ==
[2021-10-09 14:56] LABS: HEMATOCRIT 43 % (35-52); HEMOGLOBIN 14.5 g/dL (11.5-16.0); MEAN CORPUSCULAR HEMOGLOBIN 31 pg (25-34); MEAN CORPUSCULAR HGB CONC 34 g/dL (32-36); MEAN CORPUSCULAR VOLUME 93 fL (80-99); MEAN PLATELET VOLUME 11.2 fL (9.0-12.2); PLATELET COUNT 173 10^3/uL (130-400); WHITE BLOOD COUNT 4.7 10^3/uL (4.3-11.0)
[2021-10-09 15:15] LABS: ALANINE AMINOTRANSFERASE 17 U/L (0-55); ALBUMIN 4.5 GM/DL (3.2-4.5); ALKALINE PHOSPHATASE 62 U/L (40-136); BILIRUBIN,TOTAL 0.5 MG/DL (0.1-1.0); BUN/CREATININE RATIO 16; CALCIUM 9.5 MG/DL (8.5-10.1); CARBON DIOXIDE 29 MMOL/L (21-32); CHLORIDE 103 MMOL/L (98-107); CREATINE KINASE 152 U/L (29-168); GFR ESTIMATED 90; GLUCOSE 96 MG/DL (70-105); POTASSIUM 4.1 MMOL/L (3.6-5.0); SODIUM 139 MMOL/L (135-145); TOTAL PROTEIN 7.3 GM/DL (6.4-8.2)
== END ==
LOC: CARD 14:45
PROVIDERS: ATTEND Nurse Practitioner Family
DX: R07.9 Chest pain, unspecified (principal); M54.9 Dorsalgia, unspecified
CPT/HCPCS: 36415; 80053; 82550; 84443; 84484; 85027; 93005

== ENCOUNTER → 2021-11-07 | Outpatient (CLI) | payer BC ==
--- NOTE | 2021-11-07 15:26 | Diagnostic Imaging Report ---
INDICATION: Left breast lump. COMPARISON: Correlation is made with the prior mammograms from 03/12/2021 and 03/06/2020. TECHNIQUE: Unilateral left 2D and 3D diagnostic mammography was performed with CAD. FINDINGS: The left breast is heterogeneously dense, limiting the sensitivity of mammography. A BB marker was placed at the area of palpable abnormality in the lateral retroareolar left breast. There is an area of increased density in the retroareolar left breast, new since the prior study. No suspicious microcalcifications are seen. The left axilla is unremarkable. IMPRESSION: There is an area of increased density in the retroareolar left breast, just deep to the area of palpable abnormality. Further evaluation with ultrasound is recommended and will be performed today. ACR BI-RADS Category 0: Incomplete. (Needs additional imaging evaluation). Result letter will be mailed to the patient. Note: At least 10% of breast cancer is not imaged by mammography. BI-RADS Category 0 Dictated by: Dictated on workstation # [id number]
--- NOTE | 2021-11-07 15:27 | Diagnostic Imaging Report ---
Indication: Palpable lump left breast. Correlation is made with diagnostic mammogram earlier the same day. Sonographic interrogation of the area of palpable abnormality was performed. This corresponds to the 4:00 location approximately 1 cm from the nipple. There is an area of hypoechogenicity at the area of lump measuring approximately 9 mm x 3 mm x 6 mm. This has the appearance of breast tissue. There is no enhancement or shadowing present. No abnormal vascularity is present. No other abnormalities are seen. IMPRESSION: BI-RADS Category 3. No suspicious sonographic abnormality is identified. Area of decreased echogenicity in the 4:00 retroareolar left breast may represent fibroglandular tissue. Even so, follow-up left mammogram and left breast ultrasound in 6 months is recommended to show continued stability. Dictated by: Dictated on workstation # [id number]
== END ==
LOC: RAD 13:15
PROVIDERS: ATTEND Nurse Practitioner Family
DX: N63.20 Unspecified lump in the left breast, unspecified quadrant (principal)
CPT/HCPCS: 76642; 77065; G0279

== ENCOUNTER 2022-03-21 05:31 | Outpatient (CLI) | payer BC ==
[~2022-03-21] VITALS: Ht 160 cm; Wt 47.7 kg
[~2022-03-21 05:31] MED LIST changes: -CRAN500T3 PO; +CRAN500T4 PO
[2022-03-21] MEDS ORDERED: PANT40TA52 PO (13:18)
[2022-03-21] MEDS ORDERED: ESTR1TAB27 PO (13:18)
== END 2022-03-21 13:25 | disposition home or self-care (01) ==
LOC: PREOP 05:31
PROVIDERS: ATTEND Surgery
DX: Z01.818 Encounter for other preprocedural examination (principal)

== ENCOUNTER 2022-03-28 07:47 | Day surgery (SDC) | payer BC ==
[2022-03-28] VITALS (11 sets, daily range): BP systolic 92–127; BP diastolic 58–85
[~2022-03-28] VITALS: Ht 160 cm; Wt 47.7 kg
[~2022-03-28 07:47] MED LIST changes: +ESTR1TAB27 PO; +PANT40TA52 PO
--- NOTE | 2022-03-28 08:05 | Progress Note-Pre Operative ---
Pre-Operative Progress Note Date of Available H&P: Mar 11, 2022 Date H&P Reviewed: Mar 28, 2022 Time H&P Reviewed: 08:05 History & Physical: H&P Reviewed, Patient Examed, No changes noted Pre-Operative Diagnosis: left breast mass LEONARD GONZALES DO Mar 28, 2022 08:05
[2022-03-28] MEDS ORDERED: LACTATED RINGERS 1,000 ML IV PRN (08:45)
[2022-03-28] MEDS ORDERED: CLINDAMYCIN 600 MG/50 ML IVPB 50 ML IV ONE (08:45)
[2022-03-28] MEDS ORDERED: LIDOCAINE/EPI 2% 1:200,00 (XYLOCAINE) 20 ML VIAL ONE (09:28)
[2022-03-28] MEDS ORDERED: MIDAZOLAM 2 MG/2 ML (VERSED) VIAL ONE (09:58)
[2022-03-28] MEDS ORDERED: fentaNYL INJ 100 MCG/2 ML AMP ONE (09:58)
[2022-03-28] MEDS ORDERED: proPOfol 200 MG/20 ML (DIPRIVAN) VIAL IV ONE (09:59)
[2022-03-28] MEDS ORDERED: ONDANSETRON 4 MG/2 ML (SDV) Z0FRAN ONE (09:59)
[2022-03-28] MEDS ORDERED: LIDOCAINE PF 2% 5 ML (XYLOCAINE) VIAL ONE (09:59)
[2022-03-28] MEDS ORDERED: GLYCOPYRROLATE 0.2 MG/ML (ROBINUL) 2 ML VIAL ONE (10:33)
[2022-03-28] MEDS ORDERED: SEVOFLURANE (ULTANE) 15 ML INHAL SOLN ONE (10:33)
--- NOTE | 2022-03-28 10:53 | Progress Note-Post Operative ---
Post-Operative Progess Note Surgeon (s)/Balance Truer (s) Surgeon LEONARD GONZALES DO Balance Truer: na Pre-Operative Diagnosis left breast mass Post-Operative Diagnosis same Procedure & Operative Findings Date of Procedure 03/28/22 Procedure Performed/Findings excision left breast mass Anesthesia Type general Estimated Blood Loss Estimated blood loss (mL): minimal Specimens/Packing Specimens Removed left breast mass LEONARD GONZALES DO Mar 28, 2022 10:53
[2022-03-28] MEDS ORDERED: DOCU-143 PO (10:55)
[2022-03-28] MEDS ORDERED: ACHD5005 PO (10:55)
--- NOTE | 2022-03-28 10:56 | Discharge Inst-Simple/Standard ---
Discharge Inst-Standard Discharge Medications New, Converted or Re-Newed RX: Transmitted to Pharmacy Patient Instructions/Follow Up Plan of Care/Instructions/FU: 2 weeks Jessica Activity as Tolerated: No Discharge Diet: Regular Diet Other Inst to Patient Follow up Appt: Make appointment for 2 week. Instructions: No lifting greater than 10 pounds. No strenuous activity. May shower in 24 hours, no tub bath or soaking. Use incentive spirometer at home as directed. No Smoking Skin/Wound Care: You have special glue over your incision that will fall off on it's own. Symptoms to Report: Appetite Changes, Extremity Discoloration, Numbness/Tingling, Swelling Increased, Bleeding Excessive, Eyesight Changes, Pain Increased, Urine Color Change, Constipation(Persistent), Fever over 101 degree F, Pain/Pressure in chest, Urinating Difficulty, Cough Up/Vomit Blood, Heart Beat Irreg/Pounding, Pain/Pressure in jaw, Vaginal Bleeding Increase, Cramps in feet or legs, Lightheadedness, Pain/Pressure in shoulder, Diarrhea(Persistent), Memory Changes Suddenly, Questions/Concerns, Weight gain consecutive days, Dizziness/Fainting, Nausea/Vomiting, Shortness of Breath, Weight gain over 2 pounds If questions or concerns contact your physician Or seek help at emergency department. LEONARD GONZALES DO Mar 28, 2022 10:56
[2022-03-28] MEDS ORDERED: MEPERIDINE (DEMEROL) INJ 50 MG/ML IVP ONE (11:00)
[2022-03-28] MEDS ORDERED: fentaNYL INJ 100 MCG/2 ML AMP IVP ONE (11:00)
[2022-03-28] MEDS ORDERED: ONDANSETRON 4 MG/2 ML (SDV) Z0FRAN IVP PRN (11:00)
[2022-03-28] MEDS ORDERED: morphine INJ 10 MG/ML 1ML (SYR OR VIAL) IVP ONE (11:00)
[2022-03-28] MEDS ORDERED: HYDROcodone/APAP 5 MG/325 MG (LORTAB) TAB PO ONE (12:30)
[2022-03-28] MEDS ORDERED: HYDROcodone/APAP 5 MG/325 MG (LORTAB) TAB ONE (12:32)
--- NOTE | 2022-03-29 03:07 | OPERATIVE REPORT ---
DATE OF SERVICE: 03/28/2022 PREOPERATIVE DIAGNOSIS: Left breast mass. POSTOPERATIVE DIAGNOSIS: Left breast mass. PROCEDURE: Excision of left breast mass. SURGEON: Leonard Lopez DO ANESTHESIA: General. ESTIMATED BLOOD LOSS: Minimal. COMPLICATIONS: None. INDICATIONS: The patient is a 51-year-old female with left breast mass, it is tender. She wishes to have it removed. She understands risks and benefits and wished to proceed. Consent was signed in the chart. DESCRIPTION OF PROCEDURE: The patient was taken to the operating suite. She was prepped and draped in sterile fashion. Timeout was performed. A subareolar incision was made. Cautery was used to dissect down through the subcutaneous tissues. Flaps were created and a palpable mass was able to be grasped and elevated and continued to be dissected around. Approximately 3 x 2 cm area of tissue was removed. A small lobule of was present, which had some firmness to it, which was removed as well. The wound was then irrigated with copious amounts of irrigation of sterile water. Hemostasis was achieved. Subcutaneous tissues were then reapproximated using 3-0 Vicryl. Skin was then closed using 4-0 Monocryl in a running subcuticular fashion. The area was washed and dried and Skin Affix was placed over the incision. The patient tolerated the procedure well without any complications. She was taken to recovery room in stable condition. Job ID: [id number] DocumentID: [id number] Dictated Date: 03/28/2022 20:03:30 V Belt Mold Assembler And Curer Date: 03/29/2022 03:05:42 Dictated By: LEONARD LOPEZ DO
== END 2022-03-28 12:58 ==
LOC: SDC 07:47
PROVIDERS: ATTEND Surgery
DX: N60.82 Other benign mammary dysplasias of left breast (principal); N64.4 Mastodynia
CPT/HCPCS: 87081

== ENCOUNTER 2022-07-29 05:35 | Outpatient (CLI) | payer BC ==
[~2022-07-29] VITALS: Ht 160 cm; Wt 46.3 kg
[~2022-07-29 05:35] MED LIST changes: +ACHD5005 PO; +DOCU-143 PO
[2022-07-30] MEDS ORDERED: SUCR1TAB PO (09:18)
== END 2022-07-30 09:48 ==
LOC: PREOP 05:35
PROVIDERS: ATTEND Surgery
DX: Z01.818 Encounter for other preprocedural examination (principal); Z12.11 Encounter for screening for malignant neoplasm of colon; K21.9 Gastro-esophageal reflux disease without esophagitis

== ENCOUNTER 2022-09-03 08:42 | Day surgery (SDC) | payer BC, OTHER ==
[~2022-09-03] VITALS: Ht 160 cm; Wt 46.3 kg
[~2022-09-03 08:42] MED LIST changes: +SUCR1TAB PO
[2022-09-03] MEDS ORDERED: LACTATED RINGERS 1,000 ML IV STA (08:50)
[2022-09-03] MEDS ORDERED: HURRICAINE EXT TUBE (BENZOCAINE) XX PRN (09:00)
[2022-09-03 09:20] VITALS: BP 106/57
[2022-09-03] MEDS ORDERED: PROPOFOL INJECTION 50 ML IV ONE (09:34)
[2022-09-03] MEDS ORDERED: proPOfol 200 MG/20 ML (DIPRIVAN) VIAL IV ONE (11:00)
--- NOTE | 2022-09-03 11:05 | Discharge Inst-Simple/Standard ---
Discharge Inst-Standard Patient Instructions/Follow Up Plan of Care/Instructions/FU: Jessica - 2 weeks Activity as Tolerated: Yes Discharge Diet: Regular Diet LEONARD GONZALES DO Sep 03, 2022 11:05
[2022-09-03 11:09] VITALS: BP 111/68
[2022-09-03 11:14] VITALS: BP 125/67
[2022-09-03 11:20] VITALS: BP 125/67
[2022-09-03 11:50] VITALS: BP 107/60
[2022-09-03] MEDS ORDERED: BSS 15 ML ONE (12:03)
--- NOTE | 2022-09-03 13:41 | Anesthesia-General Post-Op ---
MAC Patient Condition Mental Status/LOC: Same as Preop Cardiovascular: Satisfactory Nausea/Vomiting: Absent Respiratory: Satisfactory Pain: Controlled Complications: Present Post Op Complications Complications None Follow Up Care/Instructions Patient Instructions None needed. Anesthesiology Discharge Order Discharge Order Patient is doing well, stable vital signs, no complications reported from nursing. After being more alert in the endoscopy bay, prior to discharge, the patient started complaining of a painful left eye. Upon evaluation, the left eye was red and a little irritated looking. There was no drainage and there did not appear to be anything in the eye. The patient was instructed not to rub her eye with the washcloth she had in her hand. I explained the nature of a corneal abrasion and the treatment which includes resting the eye (paper tape was provided for the patient to tape her eye shut once at home) until symptoms resolve. BSS was used to irrigate the eye and a saline syringe was given to the patient for use at home. I will call the patient to check on her later this evening and again tomorrow. ANT JOHNSON CRNA Sep 03, 2022 13:41
--- NOTE | 2022-09-03 18:12 | OPERATIVE REPORT ---
DATE OF SERVICE: 09/03/2022 PREOPERATIVE DIAGNOSIS: GERD, screening colonoscopy. POSTOPERATIVE DIAGNOSES: Gastritis, normal colon. PROCEDURE: EGD with biopsy of the antrum and body. Colonoscopy. SURGEON: Leonard Lopez DO ANESTHESIA: Per EMERGENCY RESPONSE OFFICER. ESTIMATED BLOOD LOSS: None. COMPLICATIONS: None. INDICATIONS: The patient is a 52-year-old female, needing EGD and colonoscopy for further evaluation. She understood the risks and benefits of procedure and wishes to proceed. Consent was signed and in chart. DESCRIPTION OF PROCEDURE: The patient was taken to the endoscopy suite and placed in the recumbent position. Timeout was performed. Scope was inserted in the mouth, down the esophagus, stomach and into the duodenum without difficulty. No polyps, masses, ulcerations of the duodenum. Scope was slowly retracted back to the stomach where it was further insufflated. In the antral body area, some areas of gastritis appearance. Biopsies of the antrum and body were obtained. Scope was retroflexed noting no other pathology. Scope was returned to its normal position and slowly withdrawn. The distal esophagus had normal appearance. No polyps, masses or ulcerations. Scope was slowly retracted back completely removed. Digital rectal exam was performed. No palpable polyps, masses or ulcerations. Scope was inserted in the rectum and advanced all the way to the cecum with minimal difficulty. Had to use irrigation and suction was used to have adequate visualization. Scope was then also intubated through the ileocecal valve, which the ileum had normal appearance. Scope was retracted back. No polyps, masses, ulcerations in the cecum, ascending, transverse, descending and sigmoid colon. Once in the rectum, scope was retroflexed noting no other pathology. Scope was returned to its normal position and slowly withdrawn until completely removed. The patient tolerated the procedure well without any complications, taken to recovery in stable condition. RECOMMENDATIONS: The patient will need repeat colonoscopy in 10 years unless family history of colon cancer, which would then be 5 years. Any issues before that be seen at that time. Job ID: [id number] DocumentID: [id number] Dictated Date: 09/03/2022 11:08:50 Barber Or Beauty Shop Manager Date: 09/03/2022 18:11:00 Dictated By: LEONARD LOPEZ DO [facility]
== END 2022-09-03 12:26 | disposition home or self-care (01) ==
LOC: ENDO 08:42
PROVIDERS: ATTEND Surgery
DX: Z12.11 Encounter for screening for malignant neoplasm of colon (principal); K29.70 Gastritis, unspecified, without bleeding; K21.9 Gastro-esophageal reflux disease without esophagitis; K31.89 Other diseases of stomach and duodenum

== ENCOUNTER → 2023-01-24 | Outpatient (CLI) | payer OTHER ==
--- NOTE | 2023-01-24 13:20 | Diagnostic Imaging Report ---
INDICATION: Routine screening. Comparison is made with prior mammogram from 03/12/2021 and 03/06/2020. 2-D and 3-D bilateral screening mammography was performed with CAD. Scattered fibroglandular densities are identified bilaterally. The parenchymal pattern is stable. No mass or malignant-appearing microcalcifications are seen. Axillae are unremarkable. IMPRESSION: No mammographic features suspicious for malignancy are identified. ACR BI-RADS Category 1: Negative. Result letter will be mailed to the patient. Note: At least 10% of breast cancer is not imaged by mammography. BI-RADS Category 1 Dictated by: Dictated on workstation # [id number]
== END ==
LOC: RAD 10:41
PROVIDERS: ATTEND Family Medicine
DX: Z12.31 Encounter for screening mammogram for malignant neoplasm of breast (principal)
CPT/HCPCS: 77063; 77067

== ENCOUNTER → 2023-04-28 | Outpatient (CLI) | payer OTHER ==
--- NOTE | 2023-04-28 18:53 | Diagnostic Imaging Report ---
EXAMINATION: Cervical spine radiographs EXAM DATE: 04/28/2023 1:20 PM COMPARISON: None available. HISTORY: ACUTE NECK PAIN AND MUSCLE SPASMS OF NECK TECHNIQUE: 3 views FINDINGS: Vertebral body heights and alignment are normal. No significant facet hypertrophy or perched facets. No acute fracture is seen. Disc heights are preserved. Prevertebral soft tissues are normal. The odontoid process is intact. Minimal cervical spondylosis. IMPRESSION: 1. Minimal cervical spondylosis without acute osseous abnormality. Dictated by: Dictated on workstation # [id number]
== END ==
LOC: RAD 12:55
PROVIDERS: ATTEND Family Medicine
DX: M47.812 Spondylosis without myelopathy or radiculopathy, cervical region (principal)
CPT/HCPCS: 72040

== ENCOUNTER 2023-06-04 15:09 | Outpatient (RCR) | payer OTHER | END 2023-06-10 | disposition home or self-care (01) | PROVIDERS: ATTEND Nurse Practitioner | DX: M54.2 Cervicalgia (principal) ==

== ENCOUNTER 2023-06-27 13:45 | Outpatient (RCR) | payer OTHER | END 2023-06-27 15:00 | disposition home or self-care (01) | PROVIDERS: ATTEND Nurse Practitioner | DX: M54.2 Cervicalgia (principal) ==